=== PATIENT | male | born 1930 | race Caucasian/White ===

== ENCOUNTER 2019-12-11 12:14 | Inpatient (IN) | payer MEDICARE, OTHER ==
[~2019-12-11] VITALS: Ht 182.9 cm; Wt 69.8 kg
[~2019-12-11 12:14] MED LIST: ATROVENTNS0.03% NS; CIPRO 500MG TA500 MG PO; COLACE 100100 MG/CAP PO; COLON HERBAL CL1 CAP PO; COUMADIN 5MG5 MG/TAB PO; HCTZ 25MG TAB25 MG PO; LASIX 40MG TABL40 MG PO; LOPRESSOR 225 MG/TAB PO; NORCO 325 MG-51 TAB PO; PRIL40 PO; PROSCAR 5MG5 MG PO; PYRIDIUM 100MG100 MG PO; RAPAFLO8 MG PO; RT SPIRIVA18 MCG IH; TYLENOL EXTRA500 M1 PO; VASOTEC20 MG PO
[2019-12-11] MEDS ORDERED: ZYLOPRIM 100MG100 MG PO (12:50)
[2019-12-11] MEDS ORDERED: ULTRAM 50MG TAB50 MG PO (12:51)
[2019-12-11] MEDS ORDERED: AMOXICILLIN 50500 MG PO (12:53)
[2019-12-11 13:04] VITALS: BP 124/66; PULSE 85; TEMP 97.8
[2019-12-11 16:53] VITALS: BP 126/73; PULSE 97; TEMP 98.3
--- NOTE | 2019-12-11 20:00 | NUR ---
PATIENT IS IN BED, ALERT AND ORIENTED X3. HAS SL TO LEFT FOREARM WITHOUT REDNESS OR SWELLING. ASSISTED WITH BEDPAN, PT FEELS HE NEEDS TO HAVE A BM. PT ALSO ASKING FOR A CATHETER SINCE HE HAS NOT URINATED TODAY.
--- NOTE | 2019-12-11 20:10 | NUR ---
UNABLE TO HAVE A BM OR VOID AT THIS TIME.
[2019-12-11 21:00] VITALS: BP 151/79; PULSE 95; TEMP 98
--- NOTE | 2019-12-11 21:25 | NUR ---
ATTEMPTED TO PLACE #16FR [place], WAS ABLE TO PASS CATHETER PARTIALLY AND HAD URINE RETURN, WAS NOT ABLE TO ADVANCE CATHETER ANY FURTHER AND REMOVED PER PT COMPLAINT OF PAIN. MEDICATED WITH NORCO AND MORPHINE FOR PAIN TO LEFT HIP 07/29. PLACED MARISOL HOSE TO RIGHT LEG AND SCDS TO BOTH LOWER LEGS. ICE PACK APPLIED TO LEFT HIP.
[2019-12-11 22:17] LABS: COLLECTION METHOD CATHETER
[2019-12-11 22:23] LABS: MUCOUS Present /lpf; PH 6 (5-8); SQUAMOUS EPITHELIAL 0-2 /hpf; URINE APPEARANCE Clear; URINE BACTERIA None Seen /hpf; URINE BILIRUBIN Negative (NEGATIVE); URINE BLOOD 1+ (NEGATIVE); URINE COLOR Yellow; URINE GLUCOSE Negative (NEGATIVE); URINE KETONE Negative (NEGATIVE); URINE LEUKOCYTE ESTERASE Negative (NEGATIVE); URINE NITRATE Negative (NEGATIVE); URINE PROTEIN(semi-quant) Negative (NEGATIVE); URINE UROBILINOGEN Negative (NEGATIVE)
--- NOTE | 2019-12-11 22:30 | NUR ---
ATTEMPTED TO PLACE COUDE TIP CATHETER AT THIS TIME WITHOUT SUCCESS. MET RESISTANCE AT THE PROSTATE AREA. PATIENT DENIES NEED TO URINATE, BLADDER SCAN SHOWS >600.
--- NOTE | 2019-12-11 23:00 | NUR ---
Tucker Rebollar RN and warehouse incentive selector attempted to place #18 coude tip catheter without success, met resistance at the prostate. Patient denies being uncomfortable with bladder fullness.
[2019-12-12 00:30] VITALS: BP 159/61; PULSE 73; TEMP 98.3
--- NOTE | 2019-12-12 00:37 | NUR ---
Medicated with Morphine 2mg IVP for pain to left hip, 05/28.
[2019-12-12 04:45] VITALS: BP 145/91; PULSE 79; TEMP 98.3
--- NOTE | 2019-12-12 04:50 | NUR ---
Patient tries to use the urinal without success. Did straight cath with a more rigid catheter and was able to drain 800cc of yellow urine at this time. Pt tolerated procedure without problem.
--- NOTE | 2019-12-12 05:13 | NUR ---
Medicated with Morphine 2mg IVP and [place] po for pain to left hip 06/28. Ice pack in place.
[2019-12-12 07:21] VITALS: BP 129/71; PULSE 77; TEMP 97.5
[2019-12-12 07:31] LABS: BASO % 0.3 % (0.0-2.0); EOS # 0.1 (0.0-0.7); EOS % 0.6 % (0-4.0); GRAN # 7.8 (1.4-6.5); GRAN % 76.1 % (42.2-75.2); LYMPH # 1.3 (1.2-3.4); LYMPH % 12.9 % (20.0-51.0); MEAN CELL VOLUME 97 fl (80.0-100.0); MEAN CORPUSCULAR HGB CONC 33 g/dl (33.0-37.0); MEAN PLATELET VOLUME 11.5 fl (7.4-10.4); MONO % 9.7 % (1.7-9.3); PLATELET COUNT 118 K/mm3 (130-400); REDCELL DISTRIBUTION WIDTH-CV 14.2 % (11.5-14.5)
[2019-12-12 07:33] LABS: HEMATOCRIT 28.1 % (42.0-52.0); HEMOGLOBIN 9.2 g/dl (13.5-18.0); MEAN CORPUSCULAR HEMOGLOBIN 32 pg (27.0-31.0)
[2019-12-12 07:34] LABS: INR 2.1 (0.8-3.0); PROTHROMBIN TIME 25.4 SECONDS (9.7-12.8)
[2019-12-12 07:36] LABS: CALCIUM 9.2 mg/dL (8.4-10.2); POTASSIUM 4.5 mmol/L (3.4-5.0)
[2019-12-12 07:43] LABS: PRE ALBUMIN 17.1 mg/dL (17.6-36.0)
--- NOTE | 2019-12-12 09:00 | NUR ---
Patient alert and oriented, answers questions appropriately. See assessment. RLE with neuros intact, pulses palpable. RLE externally rotated, shortened. ELY Cleveland with urology attempts cedeno catheter placement.
--- NOTE | 2019-12-12 10:00 | NUR ---
Dr Ospina at bedside for scope guided cedeno catheter placement.
[2019-12-12 11:22] VITALS: BP 141/65; PULSE 70; TEMP 97.2
--- NOTE | 2019-12-12 12:59 | NUR ---
Dr Dominique notified of consult.
--- NOTE | 2019-12-12 13:50 | NUR ---
Dr Vides notified of consult.
[2019-12-12 14:51] VITALS: BP 86/52; PULSE 72; TEMP 97.8
--- NOTE | 2019-12-12 15:16 | NUR ---
[employer] [place] met with patient, patient's son Gilles (ph#[phone]), patient's daughter Shell (ph#[phone]), and patient's son in law Joyce to discuss discharge planning. Patient lives in [place] with his son Gilles. Patient sees ELY T[facility]ina for primary care in and has medications mailed to his home. If patient needs last minute medications he uses [facility] in . Patient states he has a cane and power chair that he uses at home. Patient reports DPOA-HC paperwork has been completed although there is not a copy in EMR. Patient is looking at post acute rehab upon discharge. SW presented Medicare.gov list of Inpatient Rehabs and SNF's in his area. SW also discussed Swing Bed option. SW then presented Patient Preference form. Patient's first preference is [facility] and second preference is [facility]. Gilles states his daughter, Liza works at [facility]. Patient's children signed preference form and ANDERSON placed form on chart. ANDERSON contacted Casa at [facility] and Peri at [facility] then faxed referrals. SW to continue to follow.
[2019-12-12] MEDS ORDERED: HYTRIN 2MG CAPSU2 MG PO (15:19)
[2019-12-12] MEDS ORDERED: 00186-0370-20 IH (15:27)
[2019-12-12] MEDS ORDERED: MIRALAX PA17 GM/Dose PO (15:34)
[2019-12-12] MEDS ORDERED: COLACE 100100 MG/CAP PO (15:34)
[2019-12-12] MEDS ORDERED: ASTELIN NASAL S34 ML NS (15:43)
--- NOTE | 2019-12-12 16:43 | NUR ---
Education Nurse was contacted by Peri at [facility] who advised they can accept referral. SW to continue to follow.
[2019-12-12 22:37] VITALS: BP 107/49; PULSE 71; TEMP 98.9
[2019-12-13] VITALS (13 sets, daily range): BP systolic 104–159; BP diastolic 47–91; PULSE 48–89; TEMP 97.7–98.2
--- NOTE | 2019-12-13 01:32 | NUR ---
Patient has rested well tonight. States he wants/needs to have a bowel movement. Utilizes the bed love with no results yet. Dee catheter present. At the beginning of the shift, urine was red and it has since lightened up and its slightly almaz at this time. Urine output appears low and has been documented previously. Catheter patent. Patient complains of pain to left hip. PRN pain medication given. Denies any further needs. Will continue to monitor.
[2019-12-13 07:34] LABS: BASO % 0.1 % (0.0-2.0); GRAN # 9.2 (1.4-6.5); GRAN % 84.4 % (42.2-75.2); LYMPH % 8.9 % (20.0-51.0); MEAN CELL VOLUME 97 fl (80.0-100.0); MEAN CORPUSCULAR HGB CONC 33 g/dl (33.0-37.0); MONO # 0.7 (0.1-0.6); MONO % 6.1 % (1.7-9.3); PLATELET COUNT 105 K/mm3 (130-400); RED BLOOD COUNT 2.77 M/mm3 (4.20-5.60); REDCELL DISTRIBUTION WIDTH-CV 14.3 % (11.5-14.5)
[2019-12-13 07:42] LABS: INR 1.2 (0.8-3.0); PROTHROMBIN TIME 13.9 SECONDS (9.7-12.8)
[2019-12-13 07:44] LABS: HEMATOCRIT 26.8 % (42.0-52.0); HEMOGLOBIN 8.8 g/dl (13.5-18.0); MEAN CORPUSCULAR HEMOGLOBIN 32 pg (27.0-31.0)
[2019-12-13 07:49] LABS: CALCIUM 9.1 mg/dL (8.4-10.2); CREATININE, serum 3.15 (0.66-1.25); POTASSIUM 4.9 mmol/L (3.4-5.0)
--- NOTE | 2019-12-13 09:00 | NUR ---
Patient resting in bed at this time. Patient is alert and oriented, answers questions appropriately. Patient states that he is having pain in his left hip, administered PRN pain medication per order. Dee in place per order. Patient denies further needs at this time, call light within reach.
--- NOTE | 2019-12-13 15:45 | NUR ---
Patient returned to floor from PACU via bed. Patient is alert but confused, family at bedside. Dressing to left hip is CDI. Post op checks initiated. Dee catheter remians in place. Patient denies pain or needs at this time, call light within reach, bed alarm on.
--- NOTE | 2019-12-13 17:55 | NUR ---
Patient in bed eating dinner with assistnace of one at this time. Patient is alert and oriented, answers questions appropriately. Patient reports that pain is still well controlled and denies further needs. Call light within reach.
--- NOTE | 2019-12-13 19:30 | NUR ---
Report received. 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 Assessment complete. VS stable. A&Ox3. C/O pain to left hip-rating pain 8/10-described as throbbing. Second Hydrocodone given per dr order. WIll monitor effectiveness. Assisted with dinner meal-having difficulty feeding self. Repositioned in bed with pillow support. Noted to have a quarter size stage II pressure ulcer to coccyx area. Barbara care provided and Allevyn dressing applied. Right elbow with abrasions/ecchymosis. Aquacel foam dressing applied. Left forearm IV with D5 1/2NS@125mls/hr infusing without difficulty. Aquacel dressign to left hip C/D/I. Fresh ice pack applied. TEDs/SCDs bilat. Dee cath with cloudy yellow urine. Tolerating PO. Denies nausea. Plan of care discussed for this shift to include HS meds/pain meds/antibiotics/repositioning. Denies needs. Call light in reach. Bed in low/wheels locked/alram on. Will monitor.
--- NOTE | 2019-12-13 21:00 | NUR ---
Called to nurses station with C/O "things crawling all over the maguire." States he has been trying to pick the ramírez off the maguire but they keep growing back. [id number] still having hallucinations. Will monitor closely.
--- NOTE | 2019-12-14 02:30 | NUR ---
Has rested off and on this shift. States pain medication given earlier in shift made his mind "crazy." C/O pain now-04/28 to left hip. Requesting to try a different medication. Roxicodone [address] order. Will monitor.
[2019-12-14 04:00] VITALS: BP 101/53; PULSE 86; TEMP 97.9
--- NOTE | 2019-12-14 04:00 | NUR ---
Has rested with eyes closed since Roxicodone. Called to desk with c/o increased pain to left hip. Rating pain 10/10 on pain scale-described as throbbing. Sat on side of bed for approx 10 minutes to see if pain would decrease with no results. Morphine 2mg given IV per dr order. WIll monitor.
--- NOTE | 2019-12-14 05:33 | NUR ---
Rested with eyes closed since Morphine dose. Fresh ice pack applied to hip. Repositioned in bed with pillow support. Denies pain/shortness of breath/nasuea. Has tolerated minimal liquid intake-D5 1/2NS@125ml/hr to left FA. Aquacel remains C/D/I. Denies needs. Call light in reach/bed in low/wheels locked/alarm on.
--- NOTE | 2019-12-14 06:00 | NUR ---
Patient resting in bed preparing for breakfast at this time. Patient is alert and oriented, answers questions appropriately. Patient reports pain in his left hip at 7/10, administered PRN pain medication per order. Patient denies further needs at this time, call light within reach.
[2019-12-14 07:53] LABS: BASO % 0.1 % (0.0-2.0); GRAN % 77.5 % (42.2-75.2); LYMPH # 0.9 (1.2-3.4); LYMPH % 10.4 % (20.0-51.0); MEAN CELL VOLUME 96 fl (80.0-100.0); MEAN CORPUSCULAR HGB CONC 33 g/dl (33.0-37.0); MEAN PLATELET VOLUME 11.7 fl (7.4-10.4); MONO % 11.6 % (1.7-9.3); PLATELET COUNT 100 K/mm3 (130-400); RED BLOOD COUNT 2.44 M/mm3 (4.20-5.60)
[2019-12-14 08:02] LABS: ALBUMIN 3.3 gm/dL (3.5-5.0); BILIRUBIN,TOTAL 1.1 mg/dL (0.0-1.0); CALCIUM 8.5 mg/dL (8.4-10.2); CREATININE, serum 2.67 (0.66-1.25); POTASSIUM 4.4 mmol/L (3.4-5.0); TOTAL PROTEIN 6.4 gm/dL (6.4-8.2)
[2019-12-14 08:10] LABS: HEMATOCRIT 23.5 % (42.0-52.0); HEMOGLOBIN 7.8 g/dl (13.5-18.0); MEAN CORPUSCULAR HEMOGLOBIN 32 pg (27.0-31.0)
[2019-12-14 09:00] VITALS: BP 119/66; PULSE 87; TEMP 97.3
[2019-12-14 13:55] VITALS: BP 106/46; PULSE 75; TEMP 97.4
[2019-12-14 16:55] VITALS: BP 98/41; PULSE 72; TEMP 97.6
--- NOTE | 2019-12-14 17:01 | NUR ---
Patient resting in bed at this time. Patient reports that pain is currently controlled, denies further needs, call light within reach.
--- NOTE | 2019-12-14 17:33 | NUR ---
CARE RESUMED FROM BIRD UNTIL SHIFT CHANGE. PATIENT SITTING UP EATING DINNER. DENIES NEEDS AT THIS TIME
--- NOTE | 2019-12-14 18:38 | NUR ---
Patient resting in bed. reposotioned in bed for comfort. Will report off to night nurse
[2019-12-14 19:23] VITALS: BP 104/50; PULSE 71; TEMP 98
[2019-12-15 01:02] VITALS: BP 127/62; PULSE 87; TEMP 98
[2019-12-15 07:29] VITALS: BP 139/53; PULSE 84; TEMP 97.4
[2019-12-15 07:46] LABS: EOS % 0.1 % (0-4.0); GRAN # 5.9 (1.4-6.5); GRAN % 79.5 % (42.2-75.2); LYMPH # 0.7 (1.2-3.4); LYMPH % 9.8 % (20.0-51.0); MEAN CELL VOLUME 96 fl (80.0-100.0); MEAN CORPUSCULAR HGB CONC 33 g/dl (33.0-37.0); MEAN PLATELET VOLUME 11.6 fl (7.4-10.4); MONO # 0.8 (0.1-0.6); MONO % 10.2 % (1.7-9.3); PLATELET COUNT 123 K/mm3 (130-400); RED BLOOD COUNT 2.36 M/mm3 (4.20-5.60); REDCELL DISTRIBUTION WIDTH-CV 14.1 % (11.5-14.5)
[2019-12-15 07:53] LABS: HEMATOCRIT 22.7 % (42.0-52.0); HEMOGLOBIN 7.5 g/dl (13.5-18.0); MEAN CORPUSCULAR HEMOGLOBIN 32 pg (27.0-31.0)
[2019-12-15 07:57] LABS: ALBUMIN 3.2 gm/dL (3.5-5.0); BILIRUBIN,TOTAL 1.2 mg/dL (0.0-1.0); CALCIUM 8.9 mg/dL (8.4-10.2); CREATININE, serum 2.49 (0.66-1.25); POTASSIUM 4.1 mmol/L (3.4-5.0); TOTAL PROTEIN 6.5 gm/dL (6.4-8.2)
--- NOTE | 2019-12-15 10:00 | NUR ---
Patient alert and oriented, answers questions appropriately. See assessment. Left hip incision with Aquacel CDI. LLE neuros intact, pulses palpable. FWB. C/o pain to left hip. No other c/o at this time.
--- NOTE | 2019-12-15 11:06 | NUR ---
Dr Connolly here to see patient.
--- NOTE | 2019-12-15 11:52 | NUR ---
Report called to Loida Lantigua.
[2019-12-15 12:06] VITALS: BP 139/53; PULSE 84; TEMP 97.4
[2019-12-15] MEDS ORDERED: DAZIDOX10 MG PO (12:17)
[2019-12-15] MEDS ORDERED: PROTONIX 40MG T40 MG PO (12:18)
--- NOTE | 2019-12-15 13:05 | NUR ---
Patient transferred to [facility] [place], paperwork sent. Report called transferred via wheelchair to private vehicle at 1305.
--- NOTE | 2019-12-15 13:12 | NUR ---
Spa Attendant attended clinical rounds with Hospitalist who advised patient ready to discharge today. Patient states he is still in pain. ANDERSON met with patient, patient's daughter, son in law, and son to discuss discharge plan. Patient's first preference is still [facility]. ANDERSON discussed transportation with the family and advised that they would need to transport by private car as Medicare does not cover EMS transport to SB placements. Patient's family expressed some frustration with this. ANDERSON contacted [facility] and [facility] to get private pay pricing, which was presented to the family. ANDERSON also advised that patient's second preference, [facility] accepted and could provide patient transportation. Family decided to transport to [facility] by private car and advised Hospitalist would provide pain medication to make patient comfortable for ride to [facility]. Patient's son in law inquired about a patient advocate to discuss discharge date. ANDERSON presented IM form to patient and family and pointed out contact information for appeal process if they feel patient is discharged too soon. Patient and patient's son expressed understanding and provided signature on form. ANDERSON placed form in chart and provided copies to patient and patient's children. Patient in agreeance to go to [facility]. ANDERSON contacted Casa SB coordinator at [facility] and was advised Dr. iMguelito Avila (ph#[phone]) has accepted patient. ANDERSON also obtained phone number for nurse report (ph#[phone] ext [phone]). ANDERSON provided these numbers to Hospitalist and patient's nurse. ANDERSON notified Casa of anticipated discharge time and faxed discharge orders. No additional concerns at this time.
== END 2019-12-15 13:05 | disposition swing bed (61) | DRG 482 ==
LOC: MEDICAL 12:14 → SURG 13:10 → MEDICAL 13:10 → SURG 14:18
PROVIDERS: Nurse Practitioner Family; Orthopaedic Surgery; Physician Assistant; ADMIT Student in an Organized Health Care Education/Training Program
PROC: 0T7C8ZZ Dilation of Bladder Neck, Via Natural or Artificial Opening Endoscopic (ICD-10-PCS; 2019-12-12)
PROC: 0T9C80Z Drainage of Bladder Neck with Drainage Device, Via Natural or Artificial Opening Endoscopic (ICD-10-PCS; 2019-12-12)
PROC: 0QS906Z Reposition Left Femoral Shaft with Intramedullary Internal Fixation Device, Open Approach (ICD-10-PCS; principal; 2019-12-13 11:30)
DX: S72.142A Displaced intertrochanteric fracture of left femur, initial encounter for closed fracture (principal); I48.91 Unspecified atrial fibrillation; Z95.3 Presence of xenogenic heart valve; N40.1 Benign prostatic hyperplasia with lower urinary tract symptoms; R33.8 Other retention of urine; I12.9 Hypertensive chronic kidney disease with stage 1 through stage 4 chronic kidney disease, or unspecified chronic kidney disease; N18.9 Chronic kidney disease, unspecified; D63.1 Anemia in chronic kidney disease; J44.9 Chronic obstructive pulmonary disease, unspecified; R73.9 Hyperglycemia, unspecified; Z79.01 Long term (current) use of anticoagulants; M19.90 Unspecified osteoarthritis, unspecified site; M10.9 Gout, unspecified; N32.0 Bladder-neck obstruction; Z98.42 Cataract extraction status, left eye; Z98.41 Cataract extraction status, right eye; Z87.442 Personal history of urinary calculi
CPT/HCPCS: 99222-AI; 99232-AI; 99239; C1713; C1769; J0690; J1100; J2250; J2270; J2704; J7120; J7512

== ENCOUNTER 2019-12-24 13:41 | Day surgery (SDC) | payer OTHER ==
[2019-12-24] VITALS (8 sets, daily range): BP systolic 102–148; BP diastolic 51–90; PULSE 57–78; TEMP 97.2–98
[~2019-12-24] VITALS: Ht 182.9 cm; Wt 68.2 kg
[~2019-12-24 13:41] MED LIST changes: +00186-0370-20 IH; +AMOXICILLIN 50500 MG PO; +ASTELIN NASAL S34 ML NS; +DAZIDOX10 MG PO; +HYTRIN 2MG CAPSU2 MG PO; +MIRALAX PA17 GM/Dose PO; +PROTONIX 40MG T40 MG PO; +ULTRAM 50MG TAB50 MG PO; +ZYLOPRIM 100MG100 MG PO
[2019-12-24] MEDS ORDERED: LOPRESSOR 550 MG/TAB PO (15:48)
[2019-12-24] MEDS ORDERED: 00186-0370-20 IH (15:49)
[2019-12-24] MEDS ORDERED: PROTONIX 40MG T40 MG PO (15:50)
[2019-12-24] MEDS ORDERED: IRON TABLETS325 MG PO (15:51)
[2019-12-24] MEDS ORDERED: VITAMIN C500 MG PO (15:52)
[2019-12-24] MEDS ORDERED: ULTRAM 50MG TAB50 MG PO (15:53)
[2019-12-24] MEDS ORDERED: TYLENOL 500MG500 MG PO (15:54)
[2019-12-24] MEDS ORDERED: VASOTEC 10M10 MG/TAB PO (15:56)
[2019-12-24] MEDS ORDERED: GOOD SENSE ANTI-IT1% TP (15:56)
[2019-12-24] MEDS ORDERED: ZYLOPRIM 100MG100 MG PO (15:57)
[2019-12-24] MEDS ORDERED: BOOST PLUS 240240 ML PO (15:58)
[2019-12-24] MEDS ORDERED: FLOMAX 0.40.4 MG/CAP PO (16:01)
[2019-12-24] MEDS ORDERED: COUMADIN 5MG5 MG/TAB PO (16:01)
--- NOTE | 2019-12-24 17:52 | NUR ---
Patient to room 349 post op. His son at bedside. Patient alert & oriented. Dinner ordered. soft diet, patient has no teeth. Ivf infusing. CBI to slow rate-clear output. Will monitor.
--- NOTE | 2019-12-24 19:30 | NUR ---
Report received. 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 A&Ox3-drowsy. Assessment complete. VS stable. CBI running at a very slow rate. Output light yellow and clear. Denies shortness of breath/nausea/pain. Noted to have bruising to Right hip/thigh and scrotum. Edema noted to penis. States its much better than last week. Plan of care discussed for this shift to include pain control/CBI. Verbalizes understanding/denies questions or concerns. Call light in reach. Will monitor.
[2019-12-25] VITALS: BP 138/59; PULSE 74; TEMP 97.8
[2019-12-25 04:00] VITALS: BP 113/52; PULSE 62; TEMP 97.8
[2019-12-25 07:30] VITALS: BP 147/64; PULSE 64; TEMP 98
--- NOTE | 2019-12-25 09:42 | NUR ---
Dee catheter prime and pull completed per Drs order at this time. Barbara care completed.
--- NOTE | 2019-12-25 10:33 | NUR ---
ANDERSON met with the patient and contacted the patient's son, Gilles (ph#[phone]), to discuss discharge plan. The patient lives in [place] with Gilles, but has been at [facility]. The patient is here for a scheduled procedure. He has a cane, walker, and electric scooter and his son reports the patient was independent with ADLs. His PCP is Dr. Miguelito Bates and he receives his medications at [facility]. The patient and his son report that the plan is to return back to [facility]. ANDERSON presented and explained the Patient Choice Form to the patient. The patient verbalized understanding, signed, and he was provided a copy. ANDERSON contacted Paula at [facility] and confirmed that the patient is able to return back there upon discharge today, 12/25. The patient's son, Compa, plans to provide transportation. SW to continue to follow.
--- NOTE | 2019-12-25 11:31 | NUR ---
Patient alert and oriented, answers questions appropriately. See assessment. C/o left hip pain from previous repair. No other c/o at this time.
[2019-12-25 12:05] VITALS: BP 120/65; PULSE 61; TEMP 98.4
[2019-12-25 13:30] VITALS: BP 120/65; PULSE 61; TEMP 98.4
--- NOTE | 2019-12-25 14:03 | NUR ---
Reported on to [facility] A[facility]. Pt resting in bed, reported pain in left hip that was constant. Throughout the day rested in bed, and stated pain stayed the same. Resting in bed visiting w/ son. Reported off to [facility] AUGUSTINE.
--- NOTE | 2019-12-25 14:39 | NUR ---
Report called to [facility]. Patient transferred via wheelchair per private vehicle with son to [facility] at 1435. Paperwork sent. Discharged with cedeno catheter in place.
== END 2019-12-25 14:20 | disposition swing bed (61) ==
LOC: SDCO 13:41 → SURG 17:24 → SDCO 12-25 14:20
DX: N32.0 Bladder-neck obstruction (principal); R33.9 Retention of urine, unspecified; I48.91 Unspecified atrial fibrillation; D64.9 Anemia, unspecified; I35.1 Nonrheumatic aortic (valve) insufficiency; N40.1 Benign prostatic hyperplasia with lower urinary tract symptoms; J44.9 Chronic obstructive pulmonary disease, unspecified; R53.1 Weakness; M10.9 Gout, unspecified; N52.9 Male erectile dysfunction, unspecified; M17.9 Osteoarthritis of knee, unspecified; G62.9 Polyneuropathy, unspecified; I12.9 Hypertensive chronic kidney disease with stage 1 through stage 4 chronic kidney disease, or unspecified chronic kidney disease; N18.9 Chronic kidney disease, unspecified; Z87.11 Personal history of peptic ulcer disease; Z79.01 Long term (current) use of anticoagulants; Z87.891 Personal history of nicotine dependence; Z82.49 Family history of ischemic heart disease and other diseases of the circulatory system; Z83.3 Family history of diabetes mellitus
CPT/HCPCS: OP; J0690; J2405; J2704; J3010; J3301; J7120